=== PATIENT | male | born 1995 | race American Indian/Alaskan Native ===

== ENCOUNTER 2017-09-02 21:24 | Emergency (ER) | payer BC ==
[2017-09-02] MEDS ORDERED: NACL 0.9% 1000 ML 1,000 ML IV ONE (22:24)
[2017-09-02 23:07] LABS: Basophils % (Auto) 0.4 % (0.0-1.8); Eosinophils # (Auto) 0.2 K/mm3 (0.0-0.4); Eosinophils % (Auto) 2.7 % (0.0-4.3); Hematocrit 42.6 % (35.5-45.6); Hemoglobin 14.3 gm/dl (11.8-15.2); Lymphocytes # (Auto) 2.3 K/mm3 (1.2-5.4); Lymphocytes % (Auto) 39.9 % (13.4-35.0); Mean Corpuscular HGB Conc 33 % (32-34); Mean Corpuscular Hemoglobin 30 pg (28-32); Mean Corpuscular Volume 90 fl (84-94); Monocytes # (Auto) 0.6 K/mm3 (0.0-0.8); Monocytes % (Auto) 9.7 % (0.0-7.3); Platelet Count 138 K/mm3 (140-440); Red Blood Count 4.71 M/mm3 (3.65-5.03); Red Cell Distribution Width 13.7 % (13.2-15.2)
[2017-09-02 23:26] LABS: INR 0.82 (0.87-1.13)
[2017-09-02 23:27] LABS: Partial Thromboplastin Time 33.2 Sec. (24.2-36.6)
[2017-09-02 23:48] LABS: Alanine Aminotransferase 34 units/L (7-56); Albumin 4.3 g/dL (3.9-5); BUN/Creatinine Ratio 10; Blood Urea Nitrogen 11 mg/dL (9-20); Calcium 9.5 mg/dL (8.4-10.2); Hemolysis Index 6; Lipase 35 units/L (13-60)
[2017-09-03] MEDS ORDERED: TYLENOL ONE (04:40)
[2017-09-03] MEDS ORDERED: TYLENOL PO ONE (04:47)
--- NOTE | 2017-09-03 07:08 | Emergency Department Report ---
ED GI Bleed [facility] - General Chief complaint: GI Bleed Stated complaint: RECTAL BLEEDING Time Seen by Provider: 09/03/17 06:56 Source: patient, family Mode of arrival: Ambulatory Limitations: No Limitations - History of Present Illness Initial comments: Healthy 22-year-old male presents with rectal bleeding. He has blood in his stool when he defecates. He denies pain in the area. No history of symptoms inflammatory bowel disease. No family history of inflammatory bowel disease. Gradual onset of symptoms 2 days ago. He did not attempt treatment prior to arrival. MD complaint: blood streaked stool -: days(s) (2 days) Severity scale (0 -10): 10 Quality: painless Improves with: none Worsens with: bowel movement Associated Symptoms: denies other symptoms - Related Data Previous Rx's Medication Instructions Recorded Last Taken Type Phenyleph/Mineral Oil/Petrolat 1 applic RC TID #60 gram 09/03/17 Unknown Rx [Preparation H Ointment] Allergies Allergy/AdvReac Type Severity Reaction Status Date / Time cashew nut Allergy Unknown Verified 09/02/17 22:24 peanut Allergy Unknown Verified 09/02/17 22:24 ED Review of Systems ROS: Stated complaint: RECTAL BLEEDING Other details as noted in HPI ED Past Medical Hx - Past Medical History Previous Medical History?: Yes Additional medical history: seasonal allergies - Surgical History Past Surgical History?: No - Social History Smoking Status: Current Every Day Smoker Substance Use Type: Marijuana - Medications Home Medications: Home Medications Medication Instructions Recorded Confirmed Last Taken Type Phenyleph/Mineral Oil/Petrolat 1 applic RC TID #60 gram 09/03/17 Unknown Rx [Preparation H Ointment] ED Physical Exam - General Limitations: No Limitations General appearance: alert, in no apparent distress - Head Head exam: Present: atraumatic, normocephalic - Eye Eye exam: Present: normal appearance. Absent: scleral icterus, conjunctival injection - ENT ENT exam: Present: mucous membranes moist - Neck Neck exam: Present: normal inspection. Absent: meningismus - Respiratory Respiratory exam: Present: normal lung sounds bilaterally. Absent: respiratory distress, wheezes, rales, rhonchi - Cardiovascular Cardiovascular Exam: Present: regular rate, normal rhythm, normal heart sounds. Absent: systolic murmur, diastolic murmur, rubs, gallop - GI/Abdominal GI/Abdominal exam: Present: soft, normal bowel sounds. Absent: distended, tenderness, guarding, rebound - Rectal Rectal exam: Present: normal rectal tone, hemorrhoids (moderate size hemorrhoid nonthrombosed) - Extremities Exam Extremities exam: Present: normal inspection - Back Exam Back exam: Present: normal inspection - Neurological Exam Neurological exam: Present: alert, oriented X3 - Psychiatric Psychiatric exam: Present: normal affect, normal mood - Skin Skin exam: Present: warm, dry, intact, normal color. Absent: rash ED Course Vital Signs 09/02/17 09/03/17 22:15 07:01 Temperature 97.8 F Pulse Rate 74 Respiratory 20 16 Rate Blood Pressure 139/79 O2 Sat by Pulse 100 100 Oximetry ED Medical Decision Making - Lab Data Result diagrams: 09/02/17 22:45 09/02/17 22:43 Laboratory Results - last 24 hr 09/02/17 09/02/17 09/02/17 22:24 22:43 22:43 WBC RBC Hgb Hct MCV MCH MCHC RDW Plt Count Lymph % (Auto) [place] % (Auto) Eos % (Auto) Baso % (Auto) Lymph # [place] # Eos # Baso # Seg Neutrophils % Seg Neutrophils # PT 11.7 L INR 0.82 L APTT 33.2 Sodium 143 Potassium 4.3 Chloride 103.7 Carbon Dioxide 28 Anion Gap 16 BUN 11 Creatinine 1.1 Estimated GFR > 60 BUN/Creatinine Ratio 10 Glucose 94 Calcium 9.5 Total Bilirubin 0.20 AST 22 ALT 34 Alkaline Phosphatase 79 Total Protein 7.1 Albumin 4.3 Albumin/Globulin Ratio 1.5 Lipase 35 Blood Type A POSITIVE Antibody Screen Negative 09/02/17 22:45 WBC 5.8 RBC 4.71 Hgb 14.3 Hct 42.6 MCV 90 MCH 30 MCHC 33 RDW 13.7 Plt Count 138 L Lymph % (Auto) 39.9 H [place] % (Auto) 9.7 H Eos % (Auto) 2.7 Baso % (Auto) 0.4 Lymph # 2.3 [place] # 0.6 Eos # 0.2 Baso # 0.0 Seg Neutrophils % 47.3 Seg Neutrophils # 2.7 PT INR APTT Sodium Potassium Chloride Carbon Dioxide Anion Gap BUN Creatinine Estimated GFR BUN/Creatinine Ratio Glucose Calcium Total Bilirubin AST ALT Alkaline Phosphatase Total Protein Albumin Albumin/Globulin Ratio Lipase Blood Type Antibody Screen Vital Signs - 24 hr 09/02/17 09/03/17 22:15 07:01 Temperature 97.8 F Pulse Rate 74 Respiratory 20 16 Rate Blood Pressure 139/79 O2 Sat by Pulse 100 100 Oximetry - EKG Data -: EKG Interpreted by Me - EKG Data 09/03/17 07:04 EKG obtained 09/02/2007 2228 Normal sinus rhythm rate of 75, normal axis normal intervals no ST elevation no t-wave abnormality Critical care attestation.: If time is entered above; I have spent that time in minutes in the direct care of this critically ill patient, excluding procedure time. ED Disposition Clinical Impression: Rectal bleeding Disposition: DC-01 TO HOME OR SELFCARE Is pt being admited?: No Does the pt Need Aspirin: No Condition: Stable Instructions: Hemorrhoids (ED), Rectal Bleeding (ED) Prescriptions: Phenyleph/Mineral Oil/Petrolat [Preparation H Ointment] 1 applic RC TID #60 gram Referrals: DERREK SANDRA MD [Staff Physician] - as needed Time of Disposition: 07:08
[2017-09-03 07:33] VITALS: BP 130/59
== END 2017-09-03 07:16 | disposition home or self-care (01) ==
LOC: ED 21:24
DX: K62.5 Hemorrhage of anus and rectum (principal); F17.200 Nicotine dependence, unspecified, uncomplicated
CPT/HCPCS: 36415; 80053; 83690; 85025; 85610; 85730; 86850; 86900; 86901; 99283